=== PATIENT | female | born 1975 | race African-American/Black ===

== ENCOUNTER 2018-04-17 22:23 | Emergency (ER) | payer OTHER ==
[~2018-04-17] VITALS: Ht 175.3 cm; Wt 144.2 kg
--- NOTE | 2018-04-18 00:10 | Diagnostic Imaging Report ---
EXAM: ABDOMEN-1VIEW (KUB) DATE: 04/17/2018 10:43 PM Time stamp on exam: 04/17/2018 INDICATION: Abdominal pain for 6 months COMPARISON: None FINDINGS: LINES/TUBES: None BOWEL PATTERN: No evidence for obstruction. SOFT TISSUES: No abnormal calcifications. No mass effect. LUNG BASES: Lung bases are clear BONES: No acute findings. IMPRESSION: No evidence of acute abdominal abnormalities. Specifically no evidence of obstructive bowel gas pattern Signed by: Dr. Manan Baxter M.D. on 04/18/2018 12:07 AM
[2018-04-18] MEDS ORDERED: BELLADONNA ALK/PHENOBARBITAL 5 ML UDC PO STA (00:16)
[2018-04-18] MEDS ORDERED: MAGNESIUM/ALUMINUM/SIMETHICONE 30 ML UDC PO ONE (00:30)
[2018-04-18] MEDS ORDERED: LIDOCAINE VISC 2% SOLN 15 ML UDC PO ONE (00:30)
== END 2018-04-18 00:35 | disposition home or self-care (01) ==
LOC: ER 22:23
DX: R10.13 Epigastric pain (principal); R11.0 Nausea; K29.00 Acute gastritis without bleeding; K59.00 Constipation, unspecified; I10 Essential (primary) hypertension
CPT/HCPCS: 74018; 99283

== ENCOUNTER 2019-06-11 13:55 | Emergency (ER) | payer OTHER ==
[~2019-06-11] VITALS: Ht 175.3 cm; Wt 144.2 kg
[2019-06-11] MEDS ORDERED: HYDROCODONE/APAP 10MG-325MG TAB PO NR (14:30)
[2019-06-11] MEDS ORDERED: ONDANSETRON HCL 4 MG ORAL DISINTEGRATING TAB PO NR (14:30)
[2019-06-11] MEDS ORDERED: HYDRALAZINE HCL 20 MG/ML VIAL IV NR (14:45)
[2019-06-11 15:58] LABS: PREGNANCY TEST, URINE NEGATIVE (NEGATIVE)
[2019-06-11 16:19] LABS: BILIRUBIN,URINE NEGATIVE (NEGATIVE); CLARITY,URINE SL CLOUDY (CLEAR); COLOR,URINE YELLOW (YELLOW); KETONES,URINE NEGATIVE (NEGATIVE); LEUKOCYTE ESTERASE ,URINE NEGATIVE (NEGATIVE); NITRITE,URINE NEGATIVE (NEGATIVE); PROTEIN,URINE DIPSTICK NEGATIVE (NEGATIVE); URINE UROBILINOGEN 0.2 mg/dL (0.2 - 1)
[2019-06-11 16:20] LABS: BACTERIA,URINE FEW /HPF; EPITHELIAL CELLS,URINE MODERATE /LPF; WBC,URINE (MAN) 0-5 /HPF (0-5)
--- OUTSIDE RECORDS SUMMARY | 2019-06-17 12:04 | XMS REPORT ---
Author Author [facility] Address Unknown Phone Unavailable Care Team Providers Care Sap Consultant Name Role Phone GURJITMARY ANN Unavailable Unavailable CARMINE FELIPE Unavailable Unavailable Lupe CRENSHAW Unavailable Unavailable Problems This patient has no known problems. Allergies, Adverse Reactions, Alerts This patient has no known allergies or adverse reactions. Medications This patient has no known medications. Results Test Description Test Time Test Comments Text Results Atomic Results Result Comments BASIC METABOLIC PANEL 2019-05-27 13:49:00 SODIUM (BEAKER) (test vnrp=699) 139 meq/L 135-148 POTASSIUM (BEAKER) (test rvoh=608) 3.8 meq/L 3.6-5.5 CHLORIDE (BEAKER) (test twnz=222) 108 meq/L 98-106 CO2 (BEAKER) (test yksl=738) 27 meq/L 24-32 BLOOD UREA NITROGEN (BEAKER) (test ttwb=989) 11 mg/dL 10-26 CREATININE (BEAKER) (test egpe=956) 0.76 mg/dL 0.50-1.20 GLUCOSE RANDOM (BEAKER) (test owzv=797) 90 mg/dL 70-110 CALCIUM (BEAKER) (test vtsh=696) 8.3 mg/dL 8.5-10.5 EGFR (BEAKER) (test mums=9892) 100 mL/min/1.73 sq m ESTIMATED GFR IS NOT ACCURATE CREATININE CLEARANCE IN PREDICTING GLOMERULAR FILTRATION RATE. ESTIMATED GFR IS NOT APPLICABLE FOR DIALYSIS PATIENTS. URINALYSIS W/ REFLEX URINE [id number] 13:38:00* Test Item Value Reference Range Comments COLOR (BEAKER) (test fmar=963) Yellow CLARITY (BEAKER) (test seov=127) Cloudy SPECIFIC GRAVITY UA (BEAKER) (test jyus=720) 1.025 1.001-1.035 PH UA (BEAKER) (test onll=356) 6.5 5.0-8.0 PROTEIN UA (BEAKER) (test utpk=882) 30 mg/dL Negative GLUCOSE UA (BEAKER) (test iocw=046) Negative Negative KETONES UA (BEAKER) (test muuq=698) Negative Negative BILIRUBIN UA (BEAKER) (test ycjh=241) Negative Negative BLOOD UA (BEAKER) (test huts=180) Trace Negative NITRITE UA (BEAKER) (test zlks=217) Negative Negative LEUKOCYTE ESTERASE UA (BEAKER) (test bsan=067) Negative Negative UROBILINOGEN UA (BEAKER) (test svfp=757) 1.0 mg/dL 0.2-1.0 BACTERIA (BEAKER) (test ujmj=139) Moderate MUCUS (BEAKER) (test nkmj=1270) Moderate RBC UA-MANUAL (BEAKER) (test mrrh=4600) 5-10 /HPF WBC UA-MANUAL (BEAKER) (test jhaa=7783) <5 /HPF SQUAMOUS EPITHELIAL MANUAL (BEAKER) (test csnu=7397) 20-50 /HPF CLUE CELLS SEEN. SOURCE(BEAKER) (test mioe=2742) RAPID TROPONIN [id number] 13:30:00* Test Item Value Reference Range Comments RAPID TROPONIN I (BEAKER) (test uhhd=5565) < ng/mL <0.05 [id number] 13:23:00* Test Item Value Reference Range Comments LIPASE (BEAKER) (test qdqu=546) 68 U/L 40-240 HEPATIC FUNCTION [id number] 13:23:00* Test Item Value Reference Range Comments TOTAL PROTEIN (BEAKER) (test unyt=193) 8.3 gm/dL 6.0-8.5 ALBUMIN (BEAKER) (test vdzy=6420) 4.1 g/dL 3.5-5.0 BILIRUBIN TOTAL (BEAKER) (test ucaa=217) 1.0 mg/dL 0.1-1.2 BILIRUBIN DIRECT (BEAKER) (test wswl=949) 0.7 mg/dL 0.0-0.4 ALKALINE PHOSPHATASE (BEAKER) (test ryjh=745) 69 U/L 30-115 AST (SGOT) (BEAKER) (test ucyo=716) 80 U/L 5-40 ALT (SGPT) (BEAKER) (test trrw=932) 19 U/L 5-50 SCREEN, [id number] 13:19:00* Test Item Value Reference Range Comments TEST URINE (BEAKER) (test ryps=874) Negative CBC W/PLT COUNT & AUTO [id number] 13:16:00* Test Item Value Reference Range Comments WHITE BLOOD CELL COUNT (BEAKER) (test wwri=041) 7.9 K/ L 4.0-10.0 RED BLOOD CELL COUNT (BEAKER) (test scvj=986) 4.61 M/ L 4.00-5.00 HEMOGLOBIN (BEAKER) (test orsg=575) 12.4 GM/DL 12.0-15.0 HEMATOCRIT (BEAKER) (test nzmb=592) 39.0 % 36.0-45.0 MEAN CORPUSCULAR VOLUME (BEAKER) (test zajy=256) 84.6 fL 82.0-99.0 MEAN CORPUSCULAR HEMOGLOBIN (BEAKER) (test gsjz=933) 27.0 pg 27.0-33.0 MEAN CORPUSCULAR HEMOGLOBIN CONC (BEAKER) (test tobu=013) 31.8 GM/DL 32.0-36.0 RED CELL DISTRIBUTION WIDTH (BEAKER) (test bcub=811) 14.7 % 10.3-14.2 PLATELET COUNT (BEAKER) (test gccu=734) 348 K/CU MM 150-430 MEAN PLATELET VOLUME (BEAKER) (test bzzi=619) 8.3 fL 6.5-10.5 NEUTROPHILS RELATIVE PERCENT (BEAKER) (test inpy=032) 52 % LYMPHOCYTES RELATIVE PERCENT (BEAKER) (test ydbp=199) 37 % MONOCYTES RELATIVE PERCENT (BEAKER) (test zxua=294) 7 % EOSINOPHILS RELATIVE PERCENT (BEAKER) (test sjeb=885) 3 % BASOPHILS RELATIVE PERCENT (BEAKER) (test wevi=982) 1 % NEUTROPHILS ABSOLUTE COUNT (BEAKER) (test eyar=498) 4.12 K/ L 1.80-8.00 LYMPHOCYTES ABSOLUTE COUNT (BEAKER) (test cnod=016) 2.89 K/ L 1.48-4.50 MONOCYTES ABSOLUTE COUNT (BEAKER) (test pocb=218) 0.58 K/ L 0.00-1.30 EOSINOPHILS ABSOLUTE COUNT (BEAKER) (test kgki=577) 0.27 K/ L 0.00-0.50 BASOPHILS ABSOLUTE COUNT (BEAKER) (test mray=077) 0.04 K/ L 0.00-0.20 TISSUE [id number] 16:14:00Surgical Pathology Report Case: [id number] Authorizing Provider: Dawn Felipe MD Collected: 08/31/2018 0952 Ordering Location: [facility] PERIOPERATIVE Received: 08/31/2018 1215 SERVICES Pathologist: Mavis Benoit MD Specimen: Gallbladder GALLBLADDER, LAPAROSCOPIC CHOLECYSTECTOMY: - CHRONIC CHOLECYSTITIS - CHOLELITHIASIS - CYSTIC DUCT MARGIN, UNREMARKABLE - NO DYSPLASIA OR MALIGNANCY SEEN Signing Pathologist Direct Phone Line: [phone] signed by Mavis Benoit MD on 09/01/2018 at 4:14 [id number] cholecystitis Gallbladder The specimen is received in formalin-filled container labeled with the patient's information and labeled "gallbladder". It consists of an intact gallbladder measuring 8.5 x 4 cm with a gallbladder wall thickness of 0.2 cm. The gallbladder lumen is impacted with numerous green smooth stones measuring up to 0.5 cm. The mucosa is [place]-red and smooth with multiple areas of effacement.Section code: A1, margin en face; A2, gallbladder wall. CG/ew PERFORMEDABDOMEN-VIEW ([facility])2018-04-18 00:06:00 [place] [id number] Patient Name: BRYSON ESPINOSA MR #: [id number] : 1975 Age/Sex: 42/F Req #: [id number] Adm Physician: Ordered by: SIMEON CRENSHAW MD Report #: [id number] Location: ER Room/Bed: Procedure: [id number] DX/ABDOMEN-1VIEW (KUB) Exam Date: 04/17/18 Exam Time: 2330 REPORT STATUS: Sig frandy EXAM: ABDOMEN-1VIEW (KUB) DATE: 04/17/2018 10:43 PM Time stamp on exa m: 04/17/2018 INDICATION: Abdominal pain for 6 months COMPARISON: None FINDINGS: LINES/TUBES: None BOWEL PATTERN: No evidence for obstruc tion. SOFT TISSUES: No abnormal calcifications. No mass effect. LUNG B ASES: Lung bases are clear BONES: No acute findings. IMPRESSION: No evidence of acute abdominal abnormalities. Specifically no evidence of obstruc tive bowel gas pattern Signed by: Dr. Manan Baxter M.D. on 04/18/2018 12 :07 AM Dictated By: MANAN MOHAN MD Transcribed By: REBECA on 04/18/186 COPY TO: SIMEON CRENSHAW MD
== END 2019-06-11 16:15 | disposition left against medical advice (07) ==
LOC: ER 13:55
DX: R10.30 Lower abdominal pain, unspecified (principal)
CPT/HCPCS: 81001; 81025; 99281